=== PATIENT | female | born 1960 | race Two or more races ===

== ENCOUNTER 2017-12-22 19:16 | Emergency (ER) | payer MEDICAID ==
--- NOTE | 2017-12-22 20:31 | EDM.PDOC ---
ED HPI GENERAL MEDICAL PROBLEM - General Chief Complaint: Lower Extremity Injury/Pain Stated Complaint: LEFT ANKLE HURTS Time Seen by Provider: 12/22/17 19:20 Source of Information: Reports: Patient, Family History Limitations: Reports: No Limitations - History of Present Illness INITIAL COMMENTS - FREE TEXT/NARRATIVE: c/o L ankle pain drinking alcohol last night, fell down a few steps during the night, pain now in L ankle, has prior ORIF of L prox tib fx, no ankle injury in past from [facility], plans to return in 1w, here with family from [place] on XR has bimalleolar fx and will likely need surgery, ortho not here for 4d, will have pt see ortho in [place] in next 1-2d Left Ankle Pain Score (Numeric/FACES): 7 - Related Data Allergies Allergy/AdvReac Type Severity Reaction Status Date / Time No Known Allergies Allergy Verified 12/22/17 19:40 Home Meds: Home Meds Lisinopril/Hydrochlorothiazide [Lisinopril-Hctz 20-25 mg Tab] 1 each PO DAILY [History] Sodium Chloride 1 gm PO TID #100 tablet 12/22/17 [Rx] Past Medical History Cardiovascular History: Reports: Hypertension Neurological History: Reports: Seizure Social & Family History - Family History Family Medical History: Noncontributory - Tobacco Use Smoking Status *Q: Current Every Day Smoker Years of Tobacco use: 40 Packs/Tins Daily: 1 - Caffeine Use Caffeine Use: Reports: Coffee - Alcohol Use Days Per Week of Alcohol Use: 7 Number of Drinks Per Day: 7 Total Drinks Per Week: 49 - Recreational Drug Use Recreational Drug Use: No Review of Systems - Review of Systems Review Of Systems: See Below Constitutional: Reports: No Symptoms Eyes: Reports: No Symptoms Ears: Reports: No Symptoms Nose: Reports: No Symptoms Mouth/Throat: Reports: No Symptoms Respiratory: Reports: No Symptoms Cardiovascular: Reports: No Symptoms GI/Abdominal: Reports: No Symptoms Genitourinary: Reports: No Symptoms Musculoskeletal: Reports: Other (L ankle pain) Skin: Reports: No Symptoms Neurological: Reports: No Symptoms Psychiatric: Reports: No Symptoms ED EXAM, GENERAL - Physical Exam Exam: See Below Exam Limited By: No Limitations General Appearance: Alert, WD/WN, Mild Distress Respiratory/Chest: No Respiratory Distress Cardiovascular: Regular Rate, Rhythm Back Exam: Normal Inspection, Full Range of Motion Extremities: Other (old midline scar over prox 1/3rd tib, mild swell and pain over distal 1/2 of tib-fib, has 1+ swell distal 1/2 of foot and at ankle medial ant & lat with 1+ tender around entire ankle, 2+ L DP pulse, m/s intact, short leg splint applied with stockinet, webroll, 3" padded fiberglass and 3" Aneesh x 2) Course - Vital Signs Last Recorded V/S: Last Vital Signs Temp 36.7 C 12/22/17 19:16 Pulse 83 12/22/17 19:16 Resp 24 H 12/22/17 19:16 BP 117/43 L 12/22/17 19:16 Pulse Ox 98 12/22/17 19:16 - Orders/Labs/Meds Orders: Active Orders 24 hr Category Date Time Status Ankle Min 3V Lt [CR] Stat Exams 12/22/17 19:22 Ordered Tibia Fibula Lt [CR] Stat Exams 12/22/17 19:26 Taken Labs: Laboratory Tests 12/22/17 12/22/17 12/22/17 Range/Units 19:35 19:35 19:35 WBC 5.7 (4.5-12.0) X10-3/uL RBC 3.37 (3.23-5.20) x10(6)uL Hgb 11.2 L (11.5-15.5) g/dL Hct 32.9 (30.0-51.3) % MCV 97.5 H (80-96) fL MCH 33.1 (27.7-33.6) pg MCHC 33.9 (32.2-35.4) g/dL RDW 12.0 (11.5-15.5) % Plt Count 191 (125-369) X10(3)uL MPV 8.4 (7.4-10.4) fL Neut % (Auto) 66.4 (46-82) % Lymph % (Auto) 22.0 (13-37) % [place] % (Auto) 10.1 (4-12) % Eos % (Auto) 1 (1.0-5.0) % Baso % (Auto) 0 (0-2) % Neut # (Auto) 3.7 (1.6-8.3) # Lymph # (Auto) 1.3 (0.6-5.0) # [place] # (Auto) 0.6 (0.0-1.3) # Eos # (Auto) 0.1 (0.0-0.8) # Baso # (Auto) 0.0 (0.0-0.2) # Sodium 121 L (135-145) mmol/L Potassium 4.4 (3.5-5.3) mmol/L Chloride 88 L* (100-110) mmol/L Carbon Dioxide 21 (21-32) mmol/L BUN 18 (7-18) mg/dL Creatinine 1.3 H (0.55-1.02) mg/dL Est Cr Clr Drug Dosing 39.50 mL/min Estimated GFR (MDRD) 42 L (>60) BUN/Creatinine Ratio 13.8 (9-20) Glucose 101 (80-116) mg/dL Calcium 8.7 (8.6-10.2) mg/dL Total Bilirubin 0.4 (0.1-1.3) mg/dL AST 24 (5-25) IU/L ALT 23 (12-36) U/L Alkaline Phosphatase 94 (56-112) IU/L C-Reactive Protein 2.5 H (0.5-0.9) mg/dL Total Protein 7.4 (6.0-8.0) g/dL Albumin 3.6 (3.5-5.2) g/dL Globulin 3.8 g/dL Albumin/Globulin Ratio 1.0 Departure - Departure Time of Disposition: 20:31 Disposition: Home, Self-Care 01 Condition: Good Clinical Impression: Bimalleolar fracture of left ankle, Hyponatremia - Discharge Information Prescriptions: Sodium Chloride 1 gm PO TID #100 tablet Instructions: Hyponatremia, Ankle Fracture, [id number], Cast or Splint Care, Adult Referrals: PCP,Not In Area [Primary Care Provider] - Additional Instructions: Keep splint clean and dry. Use crutches. No weight bearing. To replace your sodium and chloride, which are quite low, take salt tablet 1 pill 3 times a day for 2 weeks. See orthopedic surgeon in next 1-2 days. At 8 AM tomorrow, call [facility], [address] [place] [id number], phone [phone]. No alcohol, which is causing your sodium and chloride to run low. Call your Physician or Return to Emergency Department if: * Your condition worsens in any way. * You develop fever greater than 100.4. * You have vomitting that does not stop with medications. * You have pain that is not controlled with medications. - My Orders Last 24 Hours: My Active Orders 12/22/17 19:22 Ankle Min 3V Lt [CR] Stat 12/22/17 19:26 Tibia Fibula Lt [CR] Stat - Assessment/Plan Last 24 Hours: My Active Orders 12/22/17 19:22 Ankle Min 3V Lt [CR] Stat 12/22/17 19:26 Tibia Fibula Lt [CR] Stat
[2017-12-22] MEDS ORDERED: traMADol 50 MG Tab PO PRN (20:41)
[2017-12-22] MEDS ORDERED: traMADol 50 MG Tab PO ONE (20:43)
--- NOTE | 2017-12-23 10:34 | CR ---
INDICATION: Pain after fall. LEFT ANKLE: Three views of the left ankle were obtained 12/22/2017 and revealed soft tissue swelling over both malleoli, slightly more prominent laterally. Bimalleolar fractures are noted with relatively mild deformity. A greater degree of distraction is noted at the tibial fracture site with a spiral fracture of the lateral malleolus. No posterior malleolar fracture site was noted. The ankle mortise was fairly well preserved. Degenerative changes are suggested at the ankle mortise of mild degree. Large plantar calcaneal spur is noted with a tiny posterior calcaneal spur. IMPRESSION: 1. Bimalleolar fracture with distraction slightly more prominent at the medial malleolus. 2. Fairly large plantar calcaneal spur. 3. Osteoarthritis. MTDD
--- NOTE | 2017-12-23 10:40 | CR ---
INDICATION: Pain and swelling after a fall. LEFT TIBIA/FIBULA: Frontal and lateral views of the left tibia and fibula revealed evidence of previous surgery at the proximal tibia with two sophia in place in the proximal metaphysis. Degenerative changes are noted at the knee joint of at least moderate degree with suggestion of ACL repair also noted. Bimalleolar fracture is noted at the ankle with mild to moderate deformity. No other significant bone or joint abnormality was identified, except to note degenerative changes at the ankle mortise of mild degree. IMPRESSION: 1. Bimalleolar fracture at the ankle with adequate position and alignment suggested. 2. Postsurgical changes at the knee with osteoarthritis. MARCO ANTONIOD
== END 2017-12-22 20:55 | disposition home or self-care (01) ==
LOC: FB.ED 19:16
DX: S82.842S Displaced bimalleolar fracture of left lower leg, sequela (principal); E87.1 Hypo-osmolality and hyponatremia; F17.210 Nicotine dependence, cigarettes, uncomplicated; I10 Essential (primary) hypertension; Z79.899 Other long term (current) drug therapy; W18.41XA Slipping, tripping and stumbling without falling due to stepping on object, initial encounter
CPT/HCPCS: 29515; 36415; 73590; 73610; 80053; 85025; 86140; 99283; A9270